=== PATIENT | female | born 1980 | race Two or more races ===

== ENCOUNTER 2019-01-08 12:14 | Emergency (ER) | payer OTHER ==
[2019-01-08] MEDS: KETOROLAC 60 MG INJ IM (15:04)
[2019-01-08] MEDS: OXYCODONE/ACETAMINOPHEN (5/325) TAB PO (15:04)
== END 2019-01-08 16:40 | disposition home or self-care (01) ==
LOC: FTE 12:14
DX: S79.912A Unspecified injury of left hip, initial encounter (principal); X58.XXXA Exposure to other specified factors, initial encounter; Y92.9 Unspecified place or not applicable; Z96.642 Presence of left artificial hip joint; Z79.82 Long term (current) use of aspirin
CPT/HCPCS: 73510; 81025; 96372; 99284-25